=== PATIENT | male | born 1960 | race Caucasian/White ===

== ENCOUNTER 2019-09-19 07:37 | Inpatient (IN) | payer OTHER ==
[2019-09-14 18:17] VITALS: Ht 182.9 cm; Wt 149.5 kg
[2019-09-19] VITALS (24 sets, daily range): BP systolic 132–166; BP diastolic 69–89; PULSE 68–78; RESP 12–27
[~2019-09-19] VITALS: Ht 182.9 cm; Wt 149.5 kg
[~2019-09-19 07:37] MED LIST: AMLO-147 PO; CLOP75TA27 PO; FAMO40TA5 PO; METF500T24 PO; METO-448 PO; PIOG30TA12 PO; VALS320T2 PO
[2019-09-19] MEDS ORDERED: LACTATED RINGER'S 1,000 ML IV SCH (08:30)
[2019-09-19] MEDS: SOD CHLORIDE 0.9% 1,000 ML IV SCH ×2 (08:50→19:47)
[2019-09-19] MEDS ORDERED: SEVOFLURANE 15 MIN ONE (10:00)
[2019-09-19] MEDS ORDERED: BUPIVACAINE 0.5% (SDV) 30 ML INJ ONE ×2 (10:02→11:28)
[2019-09-19] MEDS ORDERED: FENTAnyl 50 MCG/ML VIAL ONE (10:04)
[2019-09-19] MEDS ORDERED: MIDAZOLAM 1 MG/ML 2 ML INJ ONE (10:04)
[2019-09-19] MEDS ORDERED: SUGAMMADEX SODIUM 200 MG/2 ML VIAL IV ONE ×2 (10:17→10:18)
[2019-09-19] MEDS ORDERED: CEFAZOLIN 1 GM INJ ONE ×4 (11:01→15:55)
[2019-09-19] MEDS ORDERED: PROPOFOL 20 ML ONE (11:51)
[2019-09-19] MEDS ORDERED: ROCURONIUM 50 MG INJ ONE ×2 (11:51→14:30)
[2019-09-19] MEDS ORDERED: LIDOCAINE 2% (SDV) 5 ML INJ ONE (11:52)
[2019-09-19] MEDS ORDERED: HYDROmorphONE 2 MG/ML SYG ONE (12:20)
[2019-09-19] MEDS ORDERED: DEXAMETHASONE 4 MG/ML 5 ML INJ ONE (13:08)
[2019-09-19] MEDS ORDERED: ONDANSETRON 4 MG INJ ONE (13:09)
[2019-09-19] MEDS ORDERED: POLYMYXIN/BACITRACIN 1L IRRIG ONE (13:57)
[2019-09-19] MEDS ORDERED: ROPIVACAINE 0.5 % 30 ML VIAL ONE (17:20)
[2019-09-19] MEDS ORDERED: GLYCOPYRROLATE 0.4 MG INJ ONE (17:28)
[2019-09-19] MEDS ORDERED: NEOSTIGMINE 3 MG/3 ML SYRINGE ONE (17:28)
[2019-09-19] MEDS ORDERED: LABETALOL HCL 20MG INJ IV PRN (18:30)
[2019-09-19] MEDS ORDERED: HYDROmorphONE 1 MG/5 ML IV SYRINGE IV PRN ×3 (18:30)
[2019-09-19] MEDS ORDERED: MEPERIDINE 25 MG INJ IV PRN (18:30)
[2019-09-19] MEDS ORDERED: HYDROmorphONE 1 MG/ML SYG IV PRN (18:30)
[2019-09-19] MEDS ORDERED: METOCLOPRAMIDE 10 MG INJ IV PRN (18:30)
[2019-09-19] MEDS ORDERED: KETOROLAC 30 MG INJ IV PRN (18:30)
[2019-09-19] MEDS ORDERED: OXYCODONE/ACETAMINOPHEN (5/325) TAB PO PRN ×2 (18:30)
[2019-09-19] MEDS ORDERED: ALBUTEROL 0.083% (NEB) 2.5 MG/3 ML AMP HHN PRN (18:30)
[2019-09-19] MEDS ORDERED: DIPHENHYDRAMINE 50 MG INJ IV PRN (18:30)
[2019-09-19] MEDS ORDERED: MAGNESIUM HYDROXIDE 30ML CUP PO PRN (18:30)
[2019-09-19] MEDS ORDERED: ONDANSETRON 4 MG INJ IV PRN ×2 (18:30)
[2019-09-19] MEDS ORDERED: hydrALAzine 20 MG INJ IV PRN (18:30)
[2019-09-19] MEDS ORDERED: EPHEDrine 25 MG/5 ML SYG IV PRN (18:30)
[2019-09-19] MEDS ORDERED: DIPHENHYDRAMINE 25 MG CAP PO PRN (18:30)
[2019-09-19] MEDS: CEFAZOLIN 1 GM/50 ML (PMX) 50 ML IVPB SCH (19:42)
[2019-09-19] MEDS: SENNA/DOCUSATE NA (8.6MG/50MG) TAB PO SCH (20:50)
[2019-09-19] MEDS: FAMOTIDINE 20 MG TAB PO SCH (20:50)
[2019-09-19] MEDS: GABAPENTIN 300 MG CAP PO SCH (20:50)
[2019-09-19] MEDS: METOPROLOL 25 MG TAB PO SCH (20:51)
[2019-09-19] MEDS: INSULIN ASPART [NOVOLOG] 3 ML PEN SC SCH (21:13)
[2019-09-20 01:39] VITALS: BP 134/85; PULSE 79; RESP 18
[2019-09-20] MEDS: CEFAZOLIN 1 GM/50 ML (PMX) 50 ML IVPB SCH ×3 (01:52→11:57)
[2019-09-20] MEDS: SOD CHLORIDE 0.9% 1,000 ML IV SCH ×2 (07:26→07:58)
[2019-09-20] MEDS: INSULIN ASPART [NOVOLOG] 3 ML PEN SC SCH ×4 (07:30→20:58)
[2019-09-20] MEDS: ACETAMINOPHEN 325 MG TAB PO PRN ×3 (07:58→20:57)
[2019-09-20 08:01] VITALS: BP 124/62; PULSE 90; RESP 18
[2019-09-20] MEDS: CEPASTAT LOZENGE MT PRN ×3 (08:02→16:42)
[2019-09-20] MEDS: LOSARTAN 50 MG TAB PO SCH (08:26)
[2019-09-20] MEDS: AMLODIPINE 10 MG TAB PO SCH (08:26)
[2019-09-20] MEDS: GABAPENTIN 300 MG CAP PO SCH ×3 (08:26→20:52)
[2019-09-20] MEDS: METOPROLOL 25 MG TAB PO SCH ×2 (08:27→20:53)
[2019-09-20] MEDS: SENNA/DOCUSATE NA (8.6MG/50MG) TAB PO SCH ×2 (08:27→20:52)
[2019-09-20] MEDS: PIOGLITAZONE 30 MG TAB PO SCH (09:26)
[2019-09-20] MEDS: CLOPIDOGREL 75 MG TAB PO SCH (10:31)
[2019-09-20] MEDS: oxyCODONE 5 MG TAB PO PRN ×3 (12:39→20:53)
[2019-09-20 15:34] VITALS: BP 124/68; PULSE 87; RESP 20
[2019-09-20] MEDS: RIVAROXABAN 10 MG TABLET PO SCH (17:42)
[2019-09-20] MEDS: metFORMIN 500 MG TAB PO SCH (17:42)
[2019-09-20 19:05] VITALS: BP 142/67; PULSE 97; RESP 18
[2019-09-20] MEDS: FAMOTIDINE 20 MG TAB PO SCH (20:53)
[2019-09-21] MEDS: oxyCODONE 5 MG TAB PO PRN ×2 (01:58→21:04)
[2019-09-21 02:00] VITALS: BP 126/64; RESP 18
[2019-09-21] MEDS: ACETAMINOPHEN 325 MG TAB PO PRN ×5 (06:28→22:00)
[2019-09-21 07:31] VITALS: BP 131/60; PULSE 92; RESP 19
[2019-09-21] MEDS: metFORMIN 500 MG TAB PO SCH ×2 (07:44→17:33)
[2019-09-21] MEDS: INSULIN ASPART [NOVOLOG] 3 ML PEN SC SCH ×4 (07:47→21:00)
[2019-09-21] MEDS: PIOGLITAZONE 30 MG TAB PO SCH (09:11)
[2019-09-21] MEDS: CLOPIDOGREL 75 MG TAB PO SCH (09:12)
[2019-09-21] MEDS: METOPROLOL 25 MG TAB PO SCH ×2 (09:12→22:05)
[2019-09-21] MEDS: GABAPENTIN 300 MG CAP PO SCH ×3 (09:12→22:00)
[2019-09-21] MEDS: SENNA/DOCUSATE NA (8.6MG/50MG) TAB PO SCH ×2 (09:12→22:00)
[2019-09-21] MEDS: LOSARTAN 50 MG TAB PO SCH (09:13)
[2019-09-21] MEDS: AMLODIPINE 10 MG TAB PO SCH (09:13)
[2019-09-21] MEDS ORDERED: ACETAMINOPHEN 325 MG TAB PO PRN (10:30)
[2019-09-21] MEDS ORDERED: ERGOCALCIFEROL 50,000 UNIT CAP PO ONE (12:00)
[2019-09-21] MEDS ORDERED: ASCORBIC ACID 500 MG TAB PO ONE (12:00)
[2019-09-21] MEDS: MULTIVITAMINS THERAPEUTIC TAB PO SCH (13:42)
[2019-09-21 16:08] VITALS: BP 118/57; PULSE 85; RESP 18
[2019-09-21] MEDS: RIVAROXABAN 10 MG TABLET PO SCH (17:30)
[2019-09-21 20:15] VITALS: BP 120/62; PULSE 100; RESP 20
[2019-09-21] MEDS: FAMOTIDINE 20 MG TAB PO SCH (22:01)
[2019-09-22 07:30] VITALS: BP 148/71; PULSE 85; RESP 20
[2019-09-22] MEDS: INSULIN ASPART [NOVOLOG] 3 ML PEN SC SCH ×2 (07:30→12:12)
[2019-09-22] MEDS: ACETAMINOPHEN 325 MG TAB PO PRN (07:59)
[2019-09-22] MEDS: PIOGLITAZONE 30 MG TAB PO SCH (08:11)
[2019-09-22] MEDS: metFORMIN 500 MG TAB PO SCH (08:11)
[2019-09-22] MEDS: GABAPENTIN 300 MG CAP PO SCH ×2 (08:11→12:13)
[2019-09-22] MEDS: METOPROLOL 25 MG TAB PO SCH (08:12)
[2019-09-22] MEDS: CLOPIDOGREL 75 MG TAB PO SCH (08:12)
[2019-09-22] MEDS: AMLODIPINE 10 MG TAB PO SCH (08:12)
[2019-09-22] MEDS: LOSARTAN 50 MG TAB PO SCH (08:12)
[2019-09-22] MEDS: MULTIVITAMINS THERAPEUTIC TAB PO SCH (08:12)
[2019-09-22] MEDS: SENNA/DOCUSATE NA (8.6MG/50MG) TAB PO SCH (08:13)
[2019-09-22] MEDS: oxyCODONE 5 MG TAB PO PRN ×2 (09:29→14:35)
== END 2019-09-22 15:30 | disposition home or self-care (01) | DRG 982 ==
LOC: SDS 07:37 → EDSTATUS 10:30 → SDS 18:23 → OBSVTOIN 18:32 → INTOOBSV 18:32 → REC 18:32 → MS1 20:06 → OBSVTOIN 09-21 08:41
PROVIDERS: ADMIT Orthopaedic Surgery; ATTEND Orthopaedic Surgery
PROC: 0SGJ04Z Fusion of Left Tarsal Joint with Internal Fixation Device, Open Approach (ICD-10-PCS; 2019-09-19)
PROC: 0SGJ04Z Fusion of Left Tarsal Joint with Internal Fixation Device, Open Approach (ICD-10-PCS; 2019-09-19)
PROC: 0SGJ07Z Fusion of Left Tarsal Joint with Autologous Tissue Substitute, Open Approach (ICD-10-PCS; 2019-09-19)
PROC: 0SGJ07Z Fusion of Left Tarsal Joint with Autologous Tissue Substitute, Open Approach (ICD-10-PCS; 2019-09-19)
PROC: 0SGJ07Z Fusion of Left Tarsal Joint with Autologous Tissue Substitute, Open Approach (ICD-10-PCS; 2019-09-19)
PROC: 0SGJ0KZ Fusion of Left Tarsal Joint with Nonautologous Tissue Substitute, Open Approach (ICD-10-PCS; 2019-09-19)
PROC: 0SGJ0KZ Fusion of Left Tarsal Joint with Nonautologous Tissue Substitute, Open Approach (ICD-10-PCS; 2019-09-19)
PROC: 0SGJ0KZ Fusion of Left Tarsal Joint with Nonautologous Tissue Substitute, Open Approach (ICD-10-PCS; 2019-09-19)
PROC: 0QBK0ZZ Excision of Left Fibula, Open Approach (ICD-10-PCS; 2019-09-19)
PROC: 0SGJ04Z Fusion of Left Tarsal Joint with Internal Fixation Device, Open Approach (ICD-10-PCS; principal; 2019-09-19 10:30)
DX: E11.610 Type 2 diabetes mellitus with diabetic neuropathic arthropathy (principal); Z68.41 Body mass index [BMI] 40.0-44.9, adult; E11.51 Type 2 diabetes mellitus with diabetic peripheral angiopathy without gangrene; R04.0 Epistaxis; E66.01 Morbid (severe) obesity due to excess calories; S93.05XA Dislocation of left ankle joint, initial encounter; I10 Essential (primary) hypertension; Z98.62 Peripheral vascular angioplasty status; Z79.84 Long term (current) use of oral hypoglycemic drugs; Z79.02 Long term (current) use of antithrombotics/antiplatelets; X50.9XXA Other and unspecified overexertion or strenuous movements or postures, initial encounter
CPT/HCPCS: 71045; 73610; 80053; 81001; 82306; 82962; 85025; 87086; 97110; 97116; 97162; 97530; 99217; C1713; G0378; J0690; J1100; J1170; J1815; J2250; J2405; J2710; J2795; J3010; J7030